=== PATIENT | female | born 1970 | race Caucasian/White ===

== ENCOUNTER 2019-04-17 11:27 | Inpatient (IN) | payer OTHER ==
[2019-04-17 11:40] VITALS: BMI 26.5
[2019-04-17] MEDS ORDERED: SODIUM CHLORIDE 1,000 ML IV STA ×2 (11:46→14:46)
--- NOTE | 2019-04-17 11:58 | PDOC ---
History of Present Illness - General Chief Complaint: Pain, Acute Stated Complaint: R/O KIDNEY STONE/LWR BACK PAIN Time Seen by Provider: 04/17/19 11:43 History Source: Patient, Unavil. due to pt. cond. - History of Present Illness Initial Comments: 04/17/19 12:30 49 yo F w/ a h/o kidney stones, R sided lithotripsy, C section X2 w/ BTL, abdominoplasty, herniated disc, comes in c/o sudden onset of L sided flank pain 2 days ago. She has been having intermittent L sided flank pain for the past 1 month but it got worse 2 days ago. Today she felt something crawl from her L flank to the L side of the abdomen. No other complaints today. Denies numbness/tingling, no weakness, no LE pain, no lower abdominal pain, no fever/chills, no NVD, no burning/pain on urination, no blood in urine (had blood in urine 1 mo ago), no vaginal discharge, no low back pain, no IVDA, no urinary/bowel incontinence, no h/o malignancy, no weight/appetite loss. Pt says that it feels just like a kidney stone pain, does not feel like a herniated disc. She went to [facility] a month ago when the pain initially started, had an abdominal sono which was negative, an xray which showed constipation, had normal labs. She was given laxatives which she has been taking and they have helped with her constpaion, LBM was full yesterday. She took Aleve 500mg at 8am today. Past History - Past Medical History Allergies/Adverse Reactions: Allergies Allergy/AdvReac Type Severity Reaction Status Date / Time No Known Allergies Allergy Verified 04/17/19 11:33 Home Medications: Ambulatory Orders NK [No Known Home Medication] 04/17/19 CVA: No COPD: No - Immunization History Immunization Up to Date: Yes - Psycho Social/Smoking Cessation Hx Smoking History: Never smoked Information on smoking cessation initiated: No Hx Alcohol Use: No Drug/Substance Use Hx: No Review of Systems - Review of Systems Able to Perform ROS?: Yes Constitutional: No: Chills, Fever, Malaise, Night Sweats HEENTM: No: Eye Pain, Recent change in vision, Throat Pain Respiratory: No: Cough, Shortness of Breath Cardiac (ROS): No: Chest Pain, Palpitations, Chest Tightness ABD/GI: No: Diarrhea, Nausea, Vomiting : Yes: Flank Pain. No: Dysuria, Hematuria Musculoskeletal: Yes: Back Pain. No: Joint Pain, Neck Pain Integumentary: No: Rash Neurological: No: Headache, Numbness, Dizziness Psychiatric: No: Change in Appetite Endocrine: No: Unexplained Weight Loss *Physical Exam - Vital Signs Last Vital Signs Temp Pulse Resp BP Pulse Ox 98.5 F 74 16 135/93 99 04/17/19 11:33 04/17/19 11:33 04/17/19 11:33 04/17/19 11:33 04/17/19 11:33 - Physical Exam General Appearance: Yes: Nourished, Apparent Distress (from pain) HEENT: positive: ERIC, Normal ENT Inspection, Normal Voice. negative: Pale Conjunctivae, Scleral Icterus (R), Scleral Icterus (L) Neck: positive: Supple. negative: Decreased range of motion, Tender midline Respiratory/Chest: positive: Lungs Clear, Normal Breath Sounds. negative: Respiratory Distress, Accessory Muscle Use Cardiovascular: positive: Regular Rhythm, Regular Rate Gastrointestinal/Abdominal: positive: Normal Bowel Sounds, Tender (Diffuse tennderness, (+)RUQ and LUQ tenderness, no lower abdominal tenderness, (+)L CVA tenderness), Soft Musculoskeletal: positive: Normal Inspection, CVA Tenderness (L). negative: Decreased Range of Motion Extremity: positive: Normal Capillary Refill, Normal Inspection, Normal Range of Motion. negative: Tender, Pedal Edema Integumentary: positive: Normal Color, Dry. negative: Jaundice, Rash Neurologic: positive: Fully Oriented, Alert, Normal Mood/Affect ED Treatment Course - LABORATORY CBC & Chemistry Diagram: 04/17/19 12:30 04/17/19 12:30 Medical Decision Making - Medical Decision Making 04/17/19 12:36 49 yo F w/ L flank pain, likely kidney stone. Will line and lab, give morphine ( since pt took aleve at 8am, cannot get NSAID yet), IV fluids, Will do CT abdomen /pelvis without contrast. 04/17/19 14:44 CT shows an obstructing 7X9mm stone to proximal ureter w/ hydronephrosis. WIll page Dr. Major, pt's urologist and will admit to hospital. Pt wants more pain meds. toradol and morphine ordered. IV fluids ordered. 04/17/19 14:47 04/17/19 15:[address] Roberto, covering for Dr. Flynn, he asked to give patient antibiotics. Ceftriaxone ordered. Pt admitted. Discharge - Discharge Information Problems reviewed: Yes Clinical Impression/Diagnosis: Ureteral calculi Condition: Stable - Follow up/Referral - Patient Discharge Instructions - Post Discharge Activity
[2019-04-17] MEDS ORDERED: morphine CARPU-JECT 4 MG/1 ML DISP.SYRIN IVPUSH ONE ×2 (12:04→14:44)
[2019-04-17] MEDS ORDERED: morphine SULFATE 4 MG/ML VIAL ONE ×2 (12:15→15:15)
[2019-04-17 12:54] LABS: EPI CELLS 6.2 /HPF (0-5/HPF); HYALINE CASTS 3 /lpf (0-8); PH,URINE 6.5 (5.0-8.0); URINE APPEARANCE CLEAR; URINE BACTERIA 42.8 /hpf (NEGATIVE); URINE BILIRUBIN NEGATIVE (NEGATIVE); URINE COLOR YELLOW; URINE GLUCOSE (UA) NEGATIVE (NEGATIVE); URINE KETONE NEGATIVE (NEGATIVE); URINE LEUK ESTERASE TRACE (NEGATIVE); URINE NITRITE NEGATIVE (NEGATIVE); URINE PROTEIN NEGATIVE (NEGATIVE); URINE RBC 9 /hpf (0-4); URINE UROBILINOGEN 0.2 mg/dL (0.2-1.0); URINE WBC 16 /hpf (0-5)
[2019-04-17 12:57] LABS: BASO % 0.7 % (0-2.0); HEMATOCRIT 37.9 % (32.4-45.2); HEMOGLOBIN 12.6 GM/dL (10.7-15.3); MCH 29.7 pg (25.7-33.7); MCHC 33.2 g/dl (32.0-36.0); MEAN CELL VOLUME 89.7 fl (80-96); MEAN PLT VOLUME 9.6 fl (7.5-11.1); MONO % 5.9 % (3.8-10.2); NEUT % 77.4 % (42.8-82.8); PLATELET COUNT 265 K/MM3 (134-434); RBC 4.23 M/mm3 (3.60-5.2); WHITE BLOOD COUNT 7.6 K/mm3 (4.0-10.0)
[2019-04-17 13:21] LABS: ALBUMIN 4.4 g/dl (3.4-5.0); BILIRUBIN,TOTAL 0.3 mg/dL (0.2-1); BLOOD UREA NITROGEN 28.6 mg/dL (7-18); CALCIUM 9.2 mg/dL (8.5-10.1); MAGNESIUM 2.1 mg/dL (1.8-2.4); PHOSPHOROUS 3.6 mg/dL (2.5-4.9); POTASSIUM 4.2 mmol/L (3.5-5.1); TOT PROT 7.5 g/dl (6.4-8.2)
[2019-04-17] MEDS ORDERED: KETOROLAC TROMETHAMINE 15 MG/ML VIAL IVPUSH ONE (14:44)
[2019-04-17] MEDS ORDERED: CEFTRIAXONE 1,000 MG in DEXTROSE 5%-WATER - 50 ML IVPB ONE (15:04)
[2019-04-17] MEDS ORDERED: KETOROLAC TROMETHAMINE 15 MG/ML VIAL ONE (15:15)
[2019-04-17] MEDS ORDERED: CEFTRIAXONE 1 GM/50 ML BAG ONE (15:15)
--- NOTE | 2019-04-17 16:12 | PN ---
Teaching Attending Note Name of Resident: Kelly Nicole ATTENDING PHYSICIAN STATEMENT I saw and evaluated the patient. I reviewed the resident's note and discussed the case with the resident. I agree with the resident's findings and plan as documented. SUBJECTIVE: Patient is a 49yof with PMHx of kidney stones s/p R sided lithotripsy, C section X2 with BL tubal ligation , abdominoplasty, herniated disc, presents with sudden onset of L sided flank pain x 2 days ago with intermittent left flank pain. Seen by [facility] and was told that she has constipation a month ago. Denies any fever or chills, presents with severe left flank pain. OBJECTIVE: Vital Signs Temperature 98.5 F 04/17/19 11:33 Pulse Rate 64 04/17/19 15:10 Respiratory Rate 18 04/17/19 15:10 Blood Pressure 124/84 04/17/19 15:10 O2 Sat by Pulse Oximetry (%) 100 04/17/19 15:10 GENERAL: The patient is awake, alert, and fully oriented, in no acute distress. HEAD: Normal with no signs of trauma. EYES: PERRL, extraocular movements intact, sclera anicteric, conjunctiva clear. ENT: Ears normal, oropharynx clear without exudates, moist mucous membranes. NECK: Trachea midline, full range of motion, supple. LUNGS: Breath sounds equal, clear to auscultation bilaterally, no wheezes, no crackles, no accessory muscle use. HEART: Regular rate and rhythm, S1, S2 without murmur, rub or gallop. ABDOMEN: Soft, nontender, nondistended, normoactive bowel sounds, no guarding, no rebound, no hepatosplenomegaly, no masses. EXTREMITIES: 2+ pulses, warm, well-perfused, no edema. No cva tenderness. NEUROLOGICAL: Cranial nerves II through XII grossly intact. Normal speech, gait not observed. PSYCH: Normal mood, normal affect. SKIN: Warm, dry, normal turgor, no rashes or lesions noted CBCD WBC 7.6 K/mm3 (4.0-10.0) 04/17/19 12:30 RBC 4.23 M/mm3 (3.60-5.2) 04/17/19 12:30 Hgb 12.6 GM/dL (10.7-15.3) 04/17/19 12:30 Hct 37.9 % (32.4-45.2) 04/17/19 12:30 MCV 89.7 fl (80-96) 04/17/19 12:30 MCHC 33.2 g/dl (32.0-36.0) 04/17/19 12:30 RDW 14.0 % (11.6-15.6) 04/17/19 12:30 Plt Count 265 K/MM3 (134-434) 04/17/19 12:30 MPV 9.6 fl (7.5-11.1) 04/17/19 12:30 CMP Sodium 141 mmol/L (136-145) 04/17/19 12:30 Potassium 4.2 mmol/L (3.5-5.1) 04/17/19 12:30 Chloride 108 mmol/L (98-107) H 04/17/19 12:30 Carbon Dioxide 25 mmol/L (21-32) 04/17/19 12:30 Anion Gap 7 MMOL/L (8-16) L 04/17/19 12:30 BUN 28.6 mg/dL (7-18) H 04/17/19 12:30 Creatinine 1.0 mg/dL (0.55-1.3) 04/17/19 12:30 Random Glucose 97 mg/dL (74-106) 04/17/19 12:30 Calcium 9.2 mg/dL (8.5-10.1) 04/17/19 12:30 Total Bilirubin 0.3 mg/dL (0.2-1) 04/17/19 12:30 AST 30 U/L (15-37) 04/17/19 12:30 ALT 27 U/L (13-61) 04/17/19 12:30 Alkaline Phosphatase 87 U/L (45-117) 04/17/19 12:30 Total Protein 7.5 g/dl (6.4-8.2) 04/17/19 12:30 Albumin 4.4 g/dl (3.4-5.0) 04/17/19 12:30 Home Medications Medication Instructions Recorded NK [No Known Home Medication] 04/17/19 Ct abdomen and pelvis: 7x9mm proximal left ureteral calculus with moderate hydronephrosis. ASSESSMENT AND PLAN: Patient is a 49yof with PMHx of kidney stones with R sided lithotripsy, C section X2 with bl tubal ligation, abdominoplasty, herniated disc, presents with sudden onset of L sided flank pain x 2 days # Left sided hydronephrosis with moderate degree hydronephrosis due to kidney stone partially obstructed. #7x9mm proximal left ureteral calculus with moderate hydronephrosis IVF pain control uro consult dr castillo npo after midnight.
--- NOTE | 2019-04-17 16:50 | HP ---
CHIEF COMPLAINT: left flank pain PCP: Trista Urologist: Enma HISTORY OF PRESENT ILLNESS: Ms. Reyes is a 49y/o female with hx of nephrolithiasis (x4, right side lithotripsy x1) and mood disorder who presents with left flank pain. She reports pain started 1 month ago along with hematuria at that time and went to urgent care where she was diagnosed with constipation and instructed to take dulcolax and miralax. The pain did improve, but it suddenly returned 2 days ago. She describes it as stabbing 10/10 with intermittent throbbing in the flank and did radiate around into the groin. She took Aleve without much relief. The pain improved spontaneously yesterday. Today she was washing dishes and felt the sudden pain again and dropped to the floor in pain. She also had nausea but no vomiting. Today, she denies abdominal pain, dysuria, hematuria, frequency, or urgency. She denies fever and chills, except chills after receiving medication in the ED. Last BM was yesterday and was normal. She reports taking dulcolax today. Lithotripsy was about 5 years ago and last stone was about 2 years ago. She reports adequate water intake. 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 History: father- kidney disease with hx of stones DM on mother's and father's side Allergies shellfish derived Allergy (Verified 04/17/19 16:50) HOME MEDICATIONS: Home Medications Medication Instructions Recorded Bupropion HCl [Wellbutrin Xl] 300 mg PO DAILY 04/17/19 REVIEW OF SYSTEMS see HPI PHYSICAL EXAMINATION Vital Signs - 24 hr 04/17/19 04/17/19 04/17/19 11:33 15:10 16:15 Temperature 98.5 F Pulse Rate 74 Pulse Rate [ 64 Right] Respiratory 16 18 18 Rate Blood Pressure 135/93 Blood Pressure 124/84 [Right Arm] O2 Sat by Pulse 99 100 100 Oximetry (%) 04/17/19 16:31 Temperature 98 F Pulse Rate Pulse Rate [ 68 Right] Respiratory 16 Rate Blood Pressure Blood Pressure 121/81 [Right Arm] O2 Sat by Pulse 98 Oximetry (%) GENERAL: Awake, alert, and fully oriented, in no acute distress. HEAD: Normal with no signs of trauma. EYES: Pupils equal, round and reactive to light, extraocular movements intact, sclera anicteric, conjunctiva clear. EARS, NOSE, THROAT: Ears normal, nares patent, moist mucous membranes. NECK: Normal range of motion LUNGS: Clear to auscultation bilaterally. HEART: Regular rate and rhythm, normal S1 and S2, no murmur ABDOMEN: Soft, nontender, not distended, normoactive bowel sounds, no guarding. MUSCULOSKELETAL: Normal range of motion at all joints. Left CVA tenderness, hypertonicity of left lower thoracic region UPPER EXTREMITIES: Warm, well-perfused. No peripheral edema. LOWER EXTREMITIES: Warm, well-perfused. No peripheral edema. NEUROLOGICAL: Cranial nerves II-XII intact. Normal speech. PSYCHIATRIC: Appropriate mood and affect. SKIN: Warm, dry, normal turgor, no rashes Laboratory Results - last 24 hr 04/17/19 04/17/19 04/17/19 12:30 12:30 12:30 WBC 7.6 RBC 4.23 Hgb 12.6 Hct 37.9 MCV 89.7 MCH 29.7 MCHC 33.2 RDW 14.0 Plt Count 265 MPV 9.6 Absolute Neuts (auto) 5.9 Neutrophils % 77.4 Lymphocytes % 13.0 Monocytes % 5.9 Eosinophils % 3.0 Basophils % 0.7 Nucleated RBC % 0 Sodium 141 Potassium 4.2 Chloride 108 H Carbon Dioxide 25 Anion Gap 7 L BUN 28.6 H Creatinine 1.0 Est GFR (CKD-EPI)AfAm 77.69 Est GFR (CKD-EPI)NonAf 67.04 Random Glucose 97 Calcium 9.2 Phosphorus 3.6 Magnesium 2.1 Total Bilirubin 0.3 AST 30 ALT 27 Alkaline Phosphatase 87 Total Protein 7.5 Albumin 4.4 Lipase 330 Beta HCG, Quant 1.4 Urine Color Urine Appearance Urine pH Ur Specific [place] Urine Protein Urine Glucose (UA) Urine Ketones Urine Blood Urine Nitrite Urine Bilirubin Urine Urobilinogen Ur Leukocyte Esterase Urine WBC (Auto) Urine RBC (Auto) Urine Casts (Auto) U Epithel Cells (Auto) Urine Bacteria (Auto) Urine HCG, Qual 04/17/19 04/17/19 12:30 12:30 WBC RBC Hgb Hct MCV MCH MCHC RDW Plt Count MPV Absolute Neuts (auto) Neutrophils % Lymphocytes % Monocytes % Eosinophils % Basophils % Nucleated RBC % Sodium Potassium Chloride Carbon Dioxide Anion Gap BUN Creatinine Est GFR (CKD-EPI)AfAm Est GFR (CKD-EPI)NonAf Random Glucose Calcium Phosphorus Magnesium Total Bilirubin AST ALT Alkaline Phosphatase Total Protein Albumin Lipase Beta HCG, Quant Urine Color Yellow Urine Appearance Clear Urine pH 6.5 Ur Specific [place] 1.024 Urine Protein Negative Urine Glucose (UA) Negative Urine Ketones Negative Urine Blood Negative Urine Nitrite Negative Urine Bilirubin Negative Urine Urobilinogen 0.2 Ur Leukocyte Esterase Trace Urine WBC (Auto) 16 Urine RBC (Auto) 9 Urine Casts (Auto) 3 U Epithel Cells (Auto) 6.2 Urine Bacteria (Auto) 42.8 Urine HCG, Qual Negative ASSESSMENT/PLAN: Ms. Reyes is a 49y/o female with hx of nephrolithiasis (x4, right side lithotripsy x1) and mood disorder who presents with stabbing, throbbing left flank pain. She reports pain started 1 month ago and improved but returned 2 days ago. #left side nephrolithiasis -CT- 7x9mm proximal stone with moderate hydronephrosis -NS 200mL/hr -morphine 2mg Q3H PRN -ceftriaxone 1g daily -strain urine -urine cx pending -NPO for possible procedure -urology consulted #mood disorder -Wellbutrin 300mg daily DVT Ppx SCDs FEN NS 200mL/hr monitor labs, Mg NPO dispo med/surg urology evaluation for possible lithotripsy Visit type - Emergency Visit Emergency Visit: Yes ED Registration Date: 04/17/19 Care time: The patient presented to the Emergency Department on the above date and was hospitalized for further evaluation of their emergent condition. - New Patient This patient is new to me today: Yes Date on this admission: 04/17/19 - Critical Care Critical Care patient: No ATTENDING PHYSICIAN STATEMENT I saw and evaluated the patient. I reviewed the resident's note and discussed the case with the resident. I agree with the resident's findings and plan as documented. SUBJECTIVE: OBJECTIVE: ASSESSMENT AND PLAN:
[2019-04-17] MEDS ORDERED: PNEUMOC 13-VAL CONJ-DIP CRM/PF 0.5 ML DISP.SYRIN IM ONE (17:08)
[2019-04-17] MEDS ORDERED: MORPHINE SULFATE 2 MG/ML VIAL IVPUSH PRN ×2 (17:45→18:30)
[2019-04-17] MEDS ORDERED: PNEUMOCOCCAL 23 VACCINE 0.5 ML VIAL IM ONE (17:45)
[2019-04-17] MEDS: SODIUM CHLORIDE 1,000 ML IV SCH (20:10)
[2019-04-17] MEDS ORDERED: MORPHINE SULFATE 2 MG/ML VIAL IVPUSH ONE (20:31)
[2019-04-17] MEDS ORDERED: MELATONIN 5 MG TABLETS PO PRN (20:48)
[2019-04-18] MEDS: morphine SULFATE 4 MG/ML VIAL IVPUSH PRN ×4 (01:50→22:00)
[2019-04-18] MEDS: SODIUM CHLORIDE 1,000 ML IV SCH ×3 (02:00→12:45)
[2019-04-18] MEDS ORDERED: KETOROLAC TROMETHAMINE 15 MG/ML VIAL IVPUSH ONE (05:04)
[2019-04-18] MEDS ORDERED: SODIUM CHLORIDE NASAL SPRAY 44 ML BOTTLE NS PRN ×2 (05:10→12:50)
[2019-04-18] MEDS ORDERED: ONDANSETRON 4 MG/2 ML VIAL IVPB ONE (06:25)
[2019-04-18 08:02] LABS: BASO % 0.4 % (0-2.0); EOS % 3.1 % (0-4.5); HEMATOCRIT 31.6 % (32.4-45.2); HEMOGLOBIN 10.5 GM/dL (10.7-15.3); LYMPH % 23.7 % (8-40); MCH 29.9 pg (25.7-33.7); MCHC 33.3 g/dl (32.0-36.0); MEAN CELL VOLUME 89.7 fl (80-96); MEAN PLT VOLUME 8.9 fl (7.5-11.1); MONO % 7.5 % (3.8-10.2); NEUT % 65.3 % (42.8-82.8); PLATELET COUNT 203 K/MM3 (134-434); RBC 3.52 M/mm3 (3.60-5.2); WHITE BLOOD COUNT 5.6 K/mm3 (4.0-10.0)
[2019-04-18 08:09] LABS: INR 1.03 (0.83-1.09); PROTHROMBIN TIME (PATIENT) 12.1 SEC (9.7-13.0)
[2019-04-18 08:29] LABS: ACTIVATED PTT 29.5 SECONDS (25.2-36.5)
[2019-04-18] MEDS ORDERED: SODIUM CHLORIDE 1,000 ML IV SCH (08:58)
[2019-04-18 09:07] LABS: ALBUMIN 3.2 g/dl (3.4-5.0); BILIRUBIN,TOTAL 0.3 mg/dL (0.2-1); BLOOD UREA NITROGEN 15.6 mg/dL (7-18); CALCIUM 8.1 mg/dL (8.5-10.1); CREATININE 0.6 mg/dL (0.55-1.3); MAGNESIUM 1.9 mg/dL (1.8-2.4); PHOSPHOROUS 3.1 mg/dL (2.5-4.9); POTASSIUM 3.7 mmol/L (3.5-5.1); TOT PROT 5.7 g/dl (6.4-8.2)
[2019-04-18] MEDS ORDERED: CEFTRIAXONE 1 GM in DEXTROSE 5%-WATER - 50 ML IVPB SCH (10:00)
[2019-04-18] MEDS ORDERED: DEXTROSE 5%-WATER - 50 ML IVPB ONE (10:14)
[2019-04-18] MEDS ORDERED: cefTRIAXone SODIUM 1 GM VIAL ONE (10:14)
[2019-04-18] MEDS ORDERED: ACETAMINOPHEN 1000 MG/100 ML VIAL (NON FORMULARY) IVPB ONE ×2 (11:03→12:50)
[2019-04-18] MEDS ORDERED: LIDOCAINE HCL/PF 2% SDV 5ML VIAL ONE (11:07)
[2019-04-18] MEDS ORDERED: DEXAMETHASONE SOD PHOSPHATE 4 MG/1 ML VIAL ONE (11:07)
[2019-04-18] MEDS ORDERED: PROPOFOL 20 ML ONE ×2 (11:08→11:14)
[2019-04-18] MEDS ORDERED: MIDAZOLAM HCL 2 MG/2 ML SINGLE DOSE VIAL ONE (11:08)
--- NOTE | 2019-04-18 12:03 | OP ---
Operative Note - Note: Operative Date: 04/18/19 Pre-Operative Diagnosis: left UPJ stone Operation: Left ULL stent RPG Post-Operative Diagnosis: Same as Pre-op Surgeon: Moe Gupta Anesthesia: General
[2019-04-18] MEDS ORDERED: PROMETHAZINE HCL 25 MG/1 ML VIAL IVPUSH PRN (12:09)
[2019-04-18] MEDS ORDERED: IBUPROFEN 800 MG/8 ML IJ IVPB ONE (12:31)
[2019-04-18] MEDS ORDERED: ACETAMINOPHEN INJECTION 100 ML IVPB ONE (12:31)
[2019-04-18] MEDS ORDERED: MELATONIN 5 MG TABLETS PO PRN (12:50)
[2019-04-18] MEDS: IBUPROFEN 800 MG/8 ML IJ IVPB PRN ×2 (12:55→18:44)
--- NOTE | 2019-04-18 13:09 | PN ---
Physical Exam: SUBJECTIVE: Patient seen and examined. Prior to procedure, patient reports pain , nausea, and vomiting overnight. Change in medication and adding Zofran improved symptoms. She continues to endorse chills. No dysuria or hematuria noted. OBJECTIVE: Vital Signs Period Temp Pulse Resp BP Sys/Casas Pulse Ox Last 24 Hr 97.3 F-98.2 F 62-77 16-20 101-124/64-84 98-100 GENERAL: The patient is awake, alert, and fully oriented, in no acute distress. HEAD: Normal with no signs of trauma. EYES: PERRL, extraocular movements intact, sclera anicteric, conjunctiva clear. ENT: Ears normal, nares patent, moist mucous membranes. NECK: Trachea midline, full range of motion LUNGS: Clear to auscultation bilaterally, no crackles HEART: Regular rate and rhythm, no murmur ABDOMEN: Soft, nontender, nondistended, normoactive bowel sounds MSK: Normal range of motion at all joints. Mild left CVA tenderness EXTREMITIES: Warm, well-perfused, mild edema in hands and feet. NEUROLOGICAL: Cranial nerves II through XII grossly intact. Normal speech. PSYCH: Normal mood, normal affect. SKIN: Warm, dry, normal turgor Laboratory Results - last 24 hr 04/17/19 04/17/19 04/17/19 12:30 12:30 12:30 WBC RBC Hgb Hct MCV MCH MCHC RDW Plt Count MPV Absolute Neuts (auto) Neutrophils % Lymphocytes % Monocytes % Eosinophils % Basophils % Nucleated RBC % PT with INR INR PTT (Actin FS) Sodium 141 Potassium 4.2 Chloride 108 H Carbon Dioxide 25 Anion Gap 7 L BUN 28.6 H Creatinine 1.0 Est GFR (CKD-EPI)AfAm 77.69 Est GFR (CKD-EPI)NonAf 67.04 Random Glucose 97 Calcium 9.2 Phosphorus 3.6 Magnesium 2.1 Total Bilirubin 0.3 AST 30 ALT 27 Alkaline Phosphatase 87 Total Protein 7.5 Albumin 4.4 Lipase 330 Beta HCG, Quant 1.4 Urine HCG, Qual Negative 04/18/19 04/18/19 04/18/19 07:20 07:20 07:20 WBC 5.6 RBC 3.52 L Hgb 10.5 L Hct 31.6 L D MCV 89.7 MCH 29.9 MCHC 33.3 RDW 14.0 Plt Count 203 D MPV 8.9 Absolute Neuts (auto) 3.7 Neutrophils % 65.3 Lymphocytes % 23.7 D Monocytes % 7.5 Eosinophils % 3.1 Basophils % 0.4 Nucleated RBC % 0 PT with INR 12.10 INR 1.03 PTT (Actin FS) 29.5 Sodium 143 Potassium 3.7 Chloride 111 H Carbon Dioxide 22 Anion Gap 10 BUN 15.6 Creatinine 0.6 Est GFR (CKD-EPI)AfAm 125.80 Est GFR (CKD-EPI)NonAf 108.54 Random Glucose 99 Calcium 8.1 L Phosphorus 3.1 Magnesium 1.9 Total Bilirubin 0.3 AST 23 ALT 24 Alkaline Phosphatase 69 Total Protein 5.7 L Albumin 3.2 L Lipase Beta HCG, Quant Urine HCG, Qual Active Medications Generic Name Dose Route Start Last Admin Trade Name Freq PRN Reason Stop Dose Admin Bupropion HCl 300 mg 04/19/19 10:00 Wellbutrin Xl - PO DAILY [facility] Fentanyl 50 mcg 04/18/19 12:09 Sublimaze Injection - IVPUSH [id number] PRN PAIN-PACU ORDER X 4 DOSES ONLY Ceftriaxone Sodium 1 gm/ 50 mls @ 100 mls/hr 04/19/19 10:00 Dextrose IVPB DAILY [facility] Protocol Sodium Chloride 1,000 mls @ 125 mls/hr 04/18/19 12:50 Normal Saline - IV ASDIR [facility] Ibuprofen 800 mg 04/18/19 12:09 Caldolor Injection - IVPB Q6H PRN Pain - Pacu Melatonin 5 mg 04/18/19 12:50 Melatonin PO HS PRN INSOMNIA Morphine Sulfate 4 mg 04/18/19 12:50 Morphine Sulfate IVPUSH Q3H PRN PAIN LEVEL 6-10 Promethazine HCl 12.5 mg 04/18/19 12:09 Phenergan Injection - IVPUSH ONCE PRN NAUSEA-FOR RESCUE AFTER 15 MIN Sodium Chloride 2 spray 04/18/19 12:50 [place] Nasal [place] - NS TID PRN NASAL CONGESTION ASSESSMENT/PLAN: Ms. Reyes is a 49y/o female with hx of nephrolithiasis (x4, right side lithotripsy x1) and mood disorder who presents with stabbing, throbbing left flank pain. She reports pain started 1 month ago and improved but returned [address] showed 7x9mm proximal stone with moderate hydronephrosis. #left side nephrolithiasis with hydronephrosis -lithotripsy with stent placement -NS 125mL/hr, will monitor for signs of fluid overload -morphine 4mg Q3H PRN -ibuprofen 800mg Q6H PRN -ceftriaxone 1g daily -urine cx pending -urology following #mood disorder -Wellbutrin 300mg daily DVT Ppx SCDs FEN NS 125mL/hr monitor labs NPO dispo med/surg Visit type - Emergency Visit Emergency Visit: Yes ED Registration Date: 04/17/19 Care time: The patient presented to the Emergency Department on the above date and was hospitalized for further evaluation of their emergent condition. - New Patient This patient is new to me today: No - Critical Care Critical Care patient: No - Discharge Referral Referred to [facility] Med [facility].C[facility] No ATTENDING PHYSICIAN STATEMENT I saw and evaluated the patient. I reviewed the resident's note and discussed the case with the resident. I agree with the resident's findings and plan as documented. SUBJECTIVE: OBJECTIVE: ASSESSMENT AND PLAN:
--- NOTE | 2019-04-18 16:56 | PN ---
Teaching Attending Note Name of Resident: Kelly Nicole ATTENDING PHYSICIAN STATEMENT I saw and evaluated the patient. I reviewed the resident's note and discussed the case with the resident. I agree with the resident's findings and plan as documented. SUBJECTIVE: patient is going to for the procedure. Vital Signs Temperature 98.5 F 04/18/19 13:45 Pulse Rate 69 04/18/19 13:45 Respiratory Rate 16 04/18/19 13:45 Blood Pressure 124/71 04/18/19 13:45 O2 Sat by Pulse Oximetry (%) 100 04/18/19 13:45 GENERAL: The patient is awake, alert, and fully oriented, in no acute distress. HEAD: Normal with no signs of trauma. EYES: PERRL, extraocular movements intact, sclera anicteric, conjunctiva clear. ENT: Ears normal, oropharynx clear without exudates, moist mucous membranes. NECK: Trachea midline, full range of motion, supple. LUNGS: Breath sounds equal, clear to auscultation bilaterally, no wheezes, no crackles, no accessory muscle use. HEART: Regular rate and rhythm, S1, S2 without murmur, rub or gallop. ABDOMEN: Soft, mild CVA tenderness on the left side, right side is no cva tenderness, no guarding, no rebound, no hepatosplenomegaly, no masses. EXTREMITIES: 2+ pulses, warm, well-perfused, no edema. No cva tenderness. NEUROLOGICAL: Cranial nerves II through XII grossly intact. gait is stable. PSYCH: Normal mood, normal affect. SKIN: Warm, dry, normal turgor, no rashes or lesions noted CBCD WBC 5.6 K/mm3 (4.0-10.0) 04/18/19 07:20 RBC 3.52 M/mm3 (3.60-5.2) L 04/18/19 07:20 Hgb 10.5 GM/dL (10.7-15.3) L 04/18/19 07:20 Hct 31.6 % (32.4-45.2) L D 04/18/19 07:20 MCV 89.7 fl (80-96) 04/18/19 07:20 MCHC 33.3 g/dl (32.0-36.0) 04/18/19 07:20 RDW 14.0 % (11.6-15.6) 04/18/19 07:20 Plt Count 203 K/MM3 (134-434) D 04/18/19 07:20 MPV 8.9 fl (7.5-11.1) 04/18/19 07:20 CMP Sodium 143 mmol/L (136-145) 04/18/19 07:20 Potassium 3.7 mmol/L (3.5-5.1) 04/18/19 07:20 Chloride 111 mmol/L (98-107) H 04/18/19 07:20 Carbon Dioxide 22 mmol/L (21-32) 04/18/19 07:20 Anion Gap 10 MMOL/L (8-16) 04/18/19 07:20 BUN 15.6 mg/dL (7-18) 04/18/19 07:20 Creatinine 0.6 mg/dL (0.55-1.3) 04/18/19 07:20 Random Glucose 99 mg/dL (74-106) 04/18/19 07:20 Calcium 8.1 mg/dL (8.5-10.1) L 04/18/19 07:20 Total Bilirubin 0.3 mg/dL (0.2-1) 04/18/19 07:20 AST 23 U/L (15-37) 04/18/19 07:20 ALT 24 U/L (13-61) 04/18/19 07:20 Alkaline Phosphatase 69 U/L (45-117) 04/18/19 07:20 Total Protein 5.7 g/dl (6.4-8.2) L 04/18/19 07:20 Albumin 3.2 g/dl (3.4-5.0) L 04/18/19 07:20 Current Medications Generic Name Dose Route Start Last Admin Trade Name Freq PRN Reason Stop Dose Admin Bupropion HCl 300 mg 04/19/19 10:00 Wellbutrin Xl - PO DAILY [facility] Fentanyl 50 mcg 04/18/19 12:09 04/18/19 12:35 Sublimaze Injection - IVPUSH 50 mcg [id number] PRN Administration PAIN-PACU ORDER X 4 DOSES ONLY Ceftriaxone Sodium 1 gm/ 50 mls @ 100 mls/hr 04/19/19 10:00 Dextrose IVPB DAILY [facility] Protocol Sodium Chloride 1,000 mls @ 125 mls/hr 04/18/19 12:50 04/18/19 12:45 Normal Saline - IV 0 mls ASDIR [facility] Administration Ibuprofen 800 mg 04/18/19 12:09 04/18/19 12:55 Caldolor Injection - IVPB 800 mg Q6H PRN Administration Pain - Pacu Melatonin 5 mg 04/18/19 12:50 Melatonin PO HS PRN INSOMNIA Morphine Sulfate 4 mg 04/18/19 12:50 04/18/19 16:38 Morphine Sulfate IVPUSH 4 mg Q3H PRN Administration PAIN LEVEL 6-10 Promethazine HCl 12.5 mg 04/18/19 12:09 Phenergan Injection - IVPUSH ONCE PRN NAUSEA-FOR RESCUE AFTER 15 MIN Sodium Chloride 2 spray 04/18/19 12:50 [place] Nasal [place] - NS TID PRN NASAL CONGESTION Home Medications Medication Instructions Recorded Bupropion HCl [Wellbutrin Xl] 300 mg PO DAILY 04/17/19 Cefuroxime Axetil [Ceftin -] 500 mg PO Q12H #10 tablet 04/18/19 Phenazopyridine HCl [Pyridium] 100 mg PO TID #15 tablet 04/18/19 CT abdomen and pelvis: 7x9mm proximal left ureteral calculus with moderate hydronephrosis. ASSESSMENT AND PLAN: Patient is a 49yof with PMHx of kidney stones with R sided lithotripsy, C section X2 with bl tubal ligation, abdominoplasty, herniated disc, presents with sudden onset of L sided flank pain x 2 days # POD#0 left UPJ stone with left ULL stent RPG; due to having Left sided hydronephrosis with moderate degree hydronephrosis due to kidney stone partially obstructed, with #7x9mm proximal left ureteral calculus with moderate hydronephrosis , seen by dr Serra. IVF pain control DVT px; early ambulation/scds possible dc in am
[2019-04-19] MEDS: morphine SULFATE 4 MG/ML VIAL IVPUSH PRN ×2 (03:12→06:31)
[2019-04-19] MEDS: SODIUM CHLORIDE 1,000 ML IV SCH (06:31)
[2019-04-19 08:26] LABS: BASO % 0.2 % (0-2.0); EOS % 1.3 % (0-4.5); HEMATOCRIT 30.4 % (32.4-45.2); LYMPH % 20.5 % (8-40); MCH 29.4 pg (25.7-33.7); MCHC 32.8 g/dl (32.0-36.0); MEAN CELL VOLUME 89.6 fl (80-96); MEAN PLT VOLUME 9.4 fl (7.5-11.1); MONO % 7.7 % (3.8-10.2); NEUT % 70.3 % (42.8-82.8); PLATELET COUNT 207 K/MM3 (134-434); RBC 3.39 M/mm3 (3.60-5.2); RDW 13.4 % (11.6-15.6)
[2019-04-19] MEDS ORDERED: ACETAMINOPHEN 1000 MG/100 ML VIAL (NON FORMULARY) IVPB ONE (08:39)
[2019-04-19 08:57] LABS: ALBUMIN 2.9 g/dl (3.4-5.0); BILIRUBIN,TOTAL 0.3 mg/dL (0.2-1); BLOOD UREA NITROGEN 9.5 mg/dL (7-18); CALCIUM 7.8 mg/dL (8.5-10.1); CREATININE 0.5 mg/dL (0.55-1.3); MAGNESIUM 1.7 mg/dL (1.8-2.4); POTASSIUM 3.3 mmol/L (3.5-5.1); TOT PROT 5.5 g/dl (6.4-8.2)
[2019-04-19] MEDS ORDERED: MAGNESIUM SULF 50% (8.12 MEQ/2 ML-1 GM VIAL) IVPB ONE (09:08)
[2019-04-19] MEDS ORDERED: POTASSIUM CHLORIDE TABS 20 MEQ TABLET.ER (FP) PO ONE (09:08)
[2019-04-19] MEDS ORDERED: cefTRIAXone SODIUM 1 GM VIAL ONE (09:15)
[2019-04-19] MEDS ORDERED: DEXTROSE 5%-WATER - 50 ML IVPB ONE (09:16)
[2019-04-19] MEDS ORDERED: CEFTRIAXONE 1 GM in DEXTROSE 5%-WATER - 50 ML IVPB SCH (10:00)
[2019-04-19] MEDS ORDERED: SODIUM CHLORIDE 1,000 ML IV SCH (10:54)
[2019-04-19] MEDS ORDERED: SODIUM CHLORIDE 1,000 ML with POTASSIUM CHLORIDE 40 MEQ IVPB SCH (10:57)
[2019-04-19] MEDS ORDERED: GLYCERIN 1 RECTAL SUPPOSITORY, ADULT RC ONE (10:58)
[2019-04-19] MEDS ORDERED: POTASSIUM CHLORIDE 40 MEQ in SODIUM CHLORIDE 1,000 ML IVPB SCH (10:59)
--- NOTE | 2019-04-19 12:48 | PN ---
Teaching Attending Note Name of Resident: Kelly Nicole ATTENDING PHYSICIAN STATEMENT I saw and evaluated the patient. I reviewed the resident's note and discussed the case with the resident. I agree with the resident's findings and plan as documented. SUBJECTIVE: Patient has a stent colic. Vital Signs Temperature 98.3 F 04/19/19 05:43 Pulse Rate 87 04/19/19 05:43 Respiratory Rate 20 04/19/19 05:43 Blood Pressure 100/60 04/19/19 05:43 O2 Sat by Pulse Oximetry (%) 100 04/18/19 21:00 GENERAL: The patient is awake, alert, and fully oriented, in no acute distress. HEAD: Normal with no signs of trauma. EYES: PERRL, extraocular movements intact, sclera anicteric, conjunctiva clear. ENT: Ears normal, oropharynx clear without exudates, moist mucous membranes. NECK: Trachea midline, full range of motion, supple. LUNGS: Breath sounds equal, clear to auscultation bilaterally, no wheezes, no crackles, no accessory muscle use. HEART: Regular rate and rhythm, S1, S2 without murmur, rub or gallop. ABDOMEN: Soft, mild left CVA tenderness, right no tenderness ,normoactive bowel sounds, no hepatosplenomegaly, no masses. EXTREMITIES: 2+ pulses, warm, well-perfused, no edema. No cva tenderness. NEUROLOGICAL: Cranial nerves II through XII grossly intact. Normal speech, gait not observed. PSYCH: Normal mood, normal affect. SKIN: Warm, dry, normal turgor, no rashes or lesions noted CBCD WBC 8.0 K/mm3 (4.0-10.0) 04/19/19 07:46 RBC 3.39 M/mm3 (3.60-5.2) L 04/19/19 07:46 Hgb 10.0 GM/dL (10.7-15.3) L 04/19/19 07:46 Hct 30.4 % (32.4-45.2) L 04/19/19 07:46 MCV 89.6 fl (80-96) 04/19/19 07:46 MCHC 32.8 g/dl (32.0-36.0) 04/19/19 07:46 RDW 13.4 % (11.6-15.6) 04/19/19 07:46 Plt Count 207 K/MM3 (134-434) 04/19/19 07:46 MPV 9.4 fl (7.5-11.1) 04/19/19 07:46 CMP Sodium 139 mmol/L (136-145) 04/19/19 07:46 Potassium 3.3 mmol/L (3.5-5.1) L 04/19/19 07:46 Chloride 109 mmol/L (98-107) H 04/19/19 07:46 Carbon Dioxide 24 mmol/L (21-32) 04/19/19 07:46 Anion Gap 5 MMOL/L (8-16) L 04/19/19 07:46 BUN 9.5 mg/dL (7-18) 04/19/19 07:46 Creatinine 0.5 mg/dL (0.55-1.3) L 04/19/19 07:46 Random Glucose 89 mg/dL (74-106) 04/19/19 07:46 Calcium 7.8 mg/dL (8.5-10.1) L 04/19/19 07:46 Total Bilirubin 0.3 mg/dL (0.2-1) 04/19/19 07:46 AST 16 U/L (15-37) 04/19/19 07:46 ALT 20 U/L (13-61) 04/19/19 07:46 Alkaline Phosphatase 67 U/L (45-117) 04/19/19 07:46 Total Protein 5.5 g/dl (6.4-8.2) L 04/19/19 07:46 Albumin 2.9 g/dl (3.4-5.0) L 04/19/19 07:46 Current Medications Generic Name Dose Route Start Last Admin Trade Name Freq PRN Reason Stop Dose Admin Bupropion HCl 300 mg 04/19/19 10:00 04/19/19 09:44 Wellbutrin Xl - PO 300 mg DAILY ANDREA Administration Fentanyl 50 mcg 04/18/19 12:09 04/18/19 12:35 Sublimaze Injection - IVPUSH 50 mcg [id number] PRN Administration PAIN-PACU ORDER X 4 DOSES ONLY Ceftriaxone Sodium 1 gm/ 50 mls @ 100 mls/hr 04/19/19 10:00 04/19/19 09:43 Dextrose IVPB 100 mls/hr DAILY ANDREA Administration Protocol Potassium Chloride 40 meq/ 1,020 mls @ 175 mls/hr 04/19/19 10:59 04/19/19 12: 18 Sodium Chloride IVPB 04/19/19 16:47 175 mls/hr ASDIR ANDREA Administration Ibuprofen 800 mg 04/18/19 12:09 04/18/19 18:44 Caldolor Injection - IVPB 800 mg Q6H PRN Administration Pain - Pacu Melatonin 5 mg 04/18/19 12:50 Melatonin PO HS PRN INSOMNIA Morphine Sulfate 4 mg 04/18/19 12:50 04/19/19 06:31 Morphine Sulfate IVPUSH 4 mg Q3H PRN Administration PAIN LEVEL 6-10 Promethazine HCl 12.5 mg 04/18/19 12:09 Phenergan Injection - IVPUSH ONCE PRN NAUSEA-FOR RESCUE AFTER 15 MIN Sodium Chloride 2 spray 04/18/19 12:50 [place] Nasal [place] - NS TID PRN NASAL CONGESTION Home Medications Medication Instructions Recorded Bupropion HCl [Wellbutrin Xl] 300 mg PO DAILY 04/17/19 Cefuroxime Axetil [Ceftin -] 500 mg PO Q12H #10 tablet 04/18/19 Phenazopyridine HCl [Pyridium] 100 mg PO TID #15 tablet 04/18/[address] abdomen and pelvis: 7x9mm proximal left ureteral calculus with moderate hydronephrosis. ASSESSMENT AND PLAN: Patient is a 49yof with PMHx of kidney stones with R sided lithotripsy, C section X2 with bl tubal ligation, abdominoplasty, herniated disc, presents with sudden onset of L sided flank pain x 2 days # POD#1 left UPJ stone/ with left ULL stent RPG; due to having Left sided hydronephrosis with moderate degree hydronephrosis due to kidney stone partially obstructed, with #7x9mm proximal left ureteral calculus with moderate hydronephrosis , seen by dr Serra. the left ureteral stent with the proximal end in the left kidney and the distal end in the bladder. As per Urologist; the stent is removed due having stent colic continue IVF, pain control #hypomagnesemia/low potassium replete. #Mild elevation of TSh , needs to follow up with the primary once stable. discharge patient home as per Melissa
--- NOTE | 2019-04-19 13:14 | PN ---
Progress Note (short form) - Note Progress Note: Afebrile VSS some stent colic noted stent removed at bedside. follow up as outpatient in two weeks,
--- NOTE | 2019-04-19 13:40 | DS ---
Physical Exam: SUBJECTIVE: Patient seen and examined. She reports feeling the stent has moved. She is nauseous and has little appetite. Urine is light pink. She denies fever or chills. The stent was removed by urology, and the pt reports feeling much better. She has no nausea. She still reports constipation. OBJECTIVE: Vital Signs Period Temp Pulse Resp BP Sys/Casas Pulse Ox Last 24 Hr 98.1 F-98.5 F 69-94 16-20 100-124/58-71 100-100 PHYSICAL EXAM GENERAL: The patient is awake, alert, and fully oriented, in no acute distress. HEAD: Normal with no signs of trauma. EYES: PERRL, extraocular movements intact, sclera anicteric, conjunctiva clear. ENT: Ears normal, nares patent, moist mucous membranes. NECK: Trachea midline, full range of motion LUNGS: Clear to auscultation bilaterally, no crackles HEART: Regular rate and rhythm, no murmur ABDOMEN: Soft, nontender, mild distention, normoactive bowel sounds EXTREMITIES: Warm, well-perfused, decreased edema in hands and feet. NEUROLOGICAL: Cranial nerves II through XII grossly intact. Normal speech. PSYCH: Normal mood, normal affect. SKIN: Warm, dry, normal turgor LABS Laboratory Results - last 24 hr 04/19/19 04/19/19 07:46 07:46 WBC 8.0 RBC 3.39 L Hgb 10.0 L Hct 30.4 L MCV 89.6 MCH 29.4 MCHC 32.8 RDW 13.4 Plt Count 207 MPV 9.4 Absolute Neuts (auto) 5.6 Neutrophils % 70.3 Lymphocytes % 20.5 Monocytes % 7.7 Eosinophils % 1.3 Basophils % 0.2 Nucleated RBC % 0 Sodium 139 Potassium 3.3 L Chloride 109 H Carbon Dioxide 24 Anion Gap 5 L BUN 9.5 Creatinine 0.5 L Est GFR (CKD-EPI)AfAm 133.58 Est GFR (CKD-EPI)NonAf 115.25 Random Glucose 89 Calcium 7.8 L Magnesium 1.7 L Total Bilirubin 0.3 AST 16 ALT 20 Alkaline Phosphatase 67 Total Protein 5.5 L Albumin 2.9 L TSH 3.85 H HOSPITAL COURSE: Ms. Reyes is a 49y/o female with hx of nephrolithiasis (x4, right side lithotripsy x1) and mood disorder who presents with stabbing, throbbing left flank pain. She reports pain started 1 month ago and improved but returned 2 days prior to presentation. CT showed 7x9mm proximal stone with moderate hydronephrosis on left. Pain was controlled with medications and IV fluids were administered. Pt was started on ceftriaxone. Lithotripsy with stent placement was performed. The following day, pt reported feeling like the stent moved. Urology removed the stent at bedside and pt felt much better. Urine cx was negative. She was instructed to follow up with urology in [address] Gupta's request. She was given Ceftin and Pyridium x 5 days. Given pt had some edema in hands and feet, TSH was collected and was slightly elevated. She was instructed to follow up with primary care to have repeat test done, and she may need medication if it stays elevated. Date of Admission:04/17/19 Date of Discharge: 04/19/19 Minutes to complete discharge: 35 Discharge Summary Problems reviewed: Yes Reason For Visit: HYDRONEPHROSIS WITH URINARY OBSTRICTION DUE TO URE Current Active Problems Hydronephrosis concurrent with and due to calculi of kidney and ureter (Acute) Condition: Good - Instructions Diet, Activity, Other Instructions: YOUR VISIT: You were admitted to the hospital with a kidney stone. Lithotripsy was done to break up the stone, and a stent was placed and removed. Your TSH (thyroid level) is slightly elevated. MEDICATIONS: Cefuroxime 500mg twice a day for 5 days. You can start tonight. Phenazopyridine 100mg three times a day for 5 days. This will help with pain and spasms. Start tonight. Continue your home medications as directed. You may take Tylenol (acetaminophen) as directed on the bottle for pain. FOLLOW UP: Dr. Weston, primary care, 1 week after discharge. Your thyroid level will need to be rechecked. Dr. Gupta, urology, 2 weeks after discharge. OTHER INSTRUCTIONS: Return to the emergency room or call 911 if you have chest pain, difficulty breathing, severe back or abdominal pain, vomiting, or fever above 101. Drink water to stay hydrated. Modify your diet to eat less kale and spinach, and see how your body reacts. These may have contributed to the kidney stone. Referrals: Duarte Weston [Primary Care Provider] - 1 Week Moe Gupta MD [Staff Physician] - 2 Weeks ([address] [place] [address], [facility] [phone]) Adilson Norwood MD [Staff Physician] - Disposition: HOME - Home Medications Comprehensive Discharge Medication List: Ambulatory Orders Bupropion HCl [Wellbutrin Xl] 300 mg PO DAILY 04/17/19 Cefuroxime Axetil [Ceftin -] 500 mg PO Q12H #10 tablet 04/18/19 Phenazopyridine HCl [Pyridium] 100 mg PO TID #15 tablet 04/18/19 This patient is new to me today: No Emergency Visit: Yes ED Registration Date: 04/17/19 Care time: The patient presented to the Emergency Department on the above date and was hospitalized for further evaluation of their emergent condition. Critical Care patient: No - Discharge Referral Referred to [facility] Med [facility] No ATTENDING PHYSICIAN STATEMENT I saw and evaluated the patient. I reviewed the resident's note and discussed the case with the resident. I agree with the resident's findings and plan as documented. SUBJECTIVE: OBJECTIVE: ASSESSMENT AND PLAN:
[2019-04-19] MEDS ORDERED: PHENAZOPYRIDINE HCL 100 MG TABLET (FP) PO ONE (14:00)
[2019-04-19 14:40] VITALS: BP 120/71; PULSE 80; TEMP 98.1
--- NOTE | 2019-04-22 19:00 | OP ---
DATE OF OPERATION: 04/18/2019 PREOPERATIVE DIAGNOSIS: Left ureteral stone, left hydronephrosis, left renal colic. POSTOPERATIVE DIAGNOSIS: Left ureteral stone, left hydronephrosis, left renal colic. PROCEDURE: Cystoscopy, left ureteroscopy, laser lithotripsy, retrograde pyelogram, and left ureteral stent placement. SURGEON: Moe Gupta MD ESTIMATED BLOOD LOSS: Minimal. FINDINGS: A 9-mm stone in the upper left ureter with hydronephrosis. DRAINS: A 24 x 6 double-J ureteral stent. PREOPERATIVE INDICATIONS: Patient is a 49-year-old female with a history of nephrolithiasis who presents with 1 month of left-sided renal colic, which was acutely worse in the last [address] scan revealed a 9-mm stone in the upper left ureter with hydronephrosis. OPERATION: The patient was brought to the OR, placed on the table in the supine position, given general anesthesia, placed in the modified lithotomy position. The groin was prepped and draped sterilely. Time-out was performed. Cystoscopy was performed. The bladder type was unremarkable. A wire was passed up the left UO to the left kidney under fluoroscopic guidance. A 10-[place] lumen catheter was used to dilate the UO, and a 2nd wire was passed up into the left kidney as well. A flexible ureteroscope was passed along the wire. Stone was seen at the left UPJ. It was pushed into the renal pelvis. Using a 365 Holmium laser fiber, the stone was broken up into small, passable fragments. No other stones of significant size were seen as all of the calices were examined. Retrograde pyelogram revealed hydronephrosis with no evidence of extravasation. The rest of the ureter was examined on the way out with no evidence of any other stones. A 6 x 24 double J ureteral stent was placed with 1 loop in the upper pole and 1 loop in the bladder. The bladder was emptied. The patient was woken up. MOE GUPTA M.D. [id number]
== END 2019-04-19 16:23 | disposition home or self-care (01) | DRG 661 ==
LOC: JER 11:27 → JERBED 14:41 → J6S 16:52
PROVIDERS: ADMIT Internal Medicine; ATTEND Internal Medicine
PROC: 0T778DZ Dilation of Left Ureter with Intraluminal Device, Via Natural or Artificial Opening Endoscopic (ICD-10-PCS; principal; 2019-04-18 10:45)
PROC: 0TC78ZZ Extirpation of Matter from Left Ureter, Via Natural or Artificial Opening Endoscopic (ICD-10-PCS; 2019-04-18 10:45)
PROC: BT1FZZZ Fluoroscopy of Left Kidney, Ureter and Bladder (ICD-10-PCS; 2019-04-18 10:45)
DX: N13.2 Hydronephrosis with renal and ureteral calculous obstruction (principal); F39 Unspecified mood [affective] disorder; E83.42 Hypomagnesemia
CPT/HCPCS: 36415; 74018-TC-FY; 74176-TC; 76000-TC-FY; 80053; 81003; 83690; 83735; 84100; 84443; 84702; 84703; 85025; 85610; 85730; 87086; 94760; 99284-25; J0131; J7030

== ENCOUNTER 2022-04-08 07:10 | Emergency (ER) | payer OTHER ==
[2022-04-08 07:20] VITALS: BMI 30.2
[2022-04-08] MEDS ORDERED: LACTATED RINGERS SOLUTION 1000 ML INFUS.BAG IV ONE (07:43)
[2022-04-08] MEDS ORDERED: ACETAMINOPHEN 1000 MG/100 ML BAG IVPB ONE (07:43)
[2022-04-08 08:55] LABS: BASO % 0.7 % (0-2.0); EOS % 3.6 % (0-4.5); HEMATOCRIT 39.1 % (32.4-45.2); HEMOGLOBIN 12.9 GM/dL (10.7-15.3); LYMPH % 16.9 % (8-40); MCH 29.6 pg (25.7-33.7); MCHC 33.1 g/dl (32.0-36.0); MEAN CELL VOLUME 89.6 fl (80-96); MEAN PLT VOLUME 8.7 fl (7.5-11.1); NEUT % 72.8 % (42.8-82.8); PLATELET COUNT 294 10^3/uL (134-434); RBC 4.36 M/mm3 (3.60-5.2); RDW 13.8 % (11.6-15.6); WHITE BLOOD COUNT 8.1 K/mm3 (4.0-10.0)
[2022-04-08 09:07] LABS: CALCIUM 9.2 mg/dL (8.5-10.1)
[2022-04-08 09:08] LABS: ALBUMIN 4.2 g/dl (3.4-5.0); BLOOD UREA NITROGEN 29.3 mg/dL (7-18)
[2022-04-08 09:11] LABS: CREATININE 0.9 mg/dL (0.55-1.3)
[2022-04-08 09:12] LABS: TOT PROT 7.8 g/dl (6.4-8.2)
[2022-04-08 09:13] LABS: BILIRUBIN,TOTAL 0.2 mg/dL (0.2-1)
[2022-04-08 09:13] LABS: EPI CELLS >36 /uL (0-25.1); HYALINE CASTS 1 /uL (0-3.1); PH,URINE 5.5 (5.0-8.0); URINE APPEARANCE CLEAR; URINE BACTERIA 273 /uL (0-1359); URINE BILIRUBIN NEGATIVE (NEGATIVE); URINE COLOR YELLOW; URINE GLUCOSE (UA) NEGATIVE (NEGATIVE); URINE KETONE NEGATIVE (NEGATIVE); URINE LEUK ESTERASE NEGATIVE (NEGATIVE); URINE NITRITE NEGATIVE (NEGATIVE); URINE PROTEIN TRACE (NEGATIVE); URINE RBC 23 /uL (0-23.9); URINE UROBILINOGEN 0.2 mg/dL (0.2-1.0); URINE WBC 30 /uL (0-25.8)
[2022-04-08] MEDS ORDERED: KETOROLAC TROMETHAMINE 15 MG/ML VIAL IVPUSH ONE (10:07)
[2022-04-08] MEDS ORDERED: KETOROLAC TROMETHAMINE 15 MG/ML VIAL ONE ×2 (10:11→11:01)
[2022-04-08] MEDS ORDERED: oxyCODONE HCL 5 MG TABLET PO ONE (10:28)
[2022-04-08] MEDS ORDERED: oxyCODONE HCL 5 MG TABLET ONE (11:00)
[2022-04-08 11:29] VITALS: BP 114/65; PULSE 72; RESP 20; TEMP 98.1
== END 2022-04-08 11:25 | disposition home or self-care (01) ==
LOC: JER 07:10
PROC: 3E033GC Introduction of Other Therapeutic Substance into Peripheral Vein, Percutaneous Approach (ICD-10-PCS; principal; 2022-04-08)
DX: N20.0 Calculus of kidney (principal)
CPT/HCPCS: 36415; 74176-TC; 80053; 81003; 84703; 85025; 87086; 99285-25